=== PATIENT | male | born 1980 | race Caucasian/White ===

== ENCOUNTER 2021-09-15 11:32 | Outpatient (CLI) | payer BC, SELFPAY ==
[2021-09-15 14:59] LABS: SARS-CoV-2 RNA PCR Positive (Negative)
== END 2021-09-15 11:33 | disposition home or self-care (01) ==
PROVIDERS: PCP Family Medicine; Visit Provider Family Medicine
DX: U07.1 COVID-19 (principal)
CPT/HCPCS: C9803; U0003; U0005